=== PATIENT | male | born 1955 | race Caucasian/White ===

== ENCOUNTER 2020-03-29 19:04 | Inpatient (IN) | payer OTHER ==
[~2020-03-29] VITALS: Ht 177.8 cm; Wt 78.0 kg
[2020-03-29 19:13] VITALS: Ht 177.8 cm; Wt 78.0 kg
[2020-03-29 20:17] LABS: BASOPHIL % 0.1 % (0-2); PLATELET COUNT 244 x10^3mcL (130-400); RED CELL DISTRIBUTION WIDTH 12.7 % (11.5-14.5)
[2020-03-29 20:18] LABS: CALCIUM 8.7 mg/dL (8.5-10.1); CARBON DIOXIDE 24.2 mmol/L (21-32); CHLORIDE SERUM 98 mmol/L (98-107); CREATININE SERUM 1.1 mg/dL (0.7-1.3); GFR1 > 60 mL/min; GLUCOSE SERUM 133 mg/dL (74-106); POTASSIUM SERUM 4.3 mmol/L (3.5-5.1); SODIUM SERUM 132 mmol/L (136-145)
[2020-03-29 20:24] LABS: ALBUMIN 2.9 g/dL (3.4-5.0); ALKALINE PHOSPHATASE 79 U/L (46-116); ALT/SGPT 71 U/L (16-63); AST/SGOT 39 U/L (15-37); BILIRUBIN TOTAL 0.76 mg/dL (0.20-1.00); MAGNESIUM 2.2 mg/dL (1.8-2.4); TOTAL PROTEIN, SERUM 7.5 g/dL (6.4-8.2)
--- NOTE | 2020-03-29 21:19 | NUR ---
PT PRESENTS TO ED WITH C/O SOB AND LEFT CALF TENDERNESS. NO SWELLING OR REDNESS NOTED TO LEFT LOWER LEG. PT NOTED WITH SOME FACIAL GRIMACING WHEN PALPATED LEFT CALF. PT REPORTS PAIN X "8 DAYS" AND SOB FOR APPROX "A FEW DAYS". PT NOTED WITH SOME CONGESTION TO LEFT LUNG FEILD BUT DENIES ANY COUGH OR FEVER. PT LAYING IN GURNEY AT THIS TIME. SAFETY MEASURES IN PLACE. FULL CM AND O2 MONITOR IN PLACE. ULTRASOUND AT BEDSIDE. WILL CONTINUE TO MONITOR.
[2020-03-29] MEDS ORDERED: MORGIDOX 1X100100 MG PO (22:37)
[2020-03-29] MEDS ORDERED: PREDNISONE10 MG PO (22:39)
--- NOTE | 2020-03-29 23:27 | NUR ---
PT AWAKE IN GURNEY, NO ACUTE DISTRESS NOTED. PT SPEAKING WITH DAUGHTER AT THIS TIME ON PERSONAL CELL PHONE. BREATHING EVEN AND UNLABORED. PT A/O X4 AND VERBALLY RESPONSIVE, SPEAKING CLEAR FULL SENTENCES. BED IN LOWEST POSITION. FULL CM AND O2 MONITOR IN PLACE. SAFETY MEASURES IN PLACE. WILL CONTINUE TO MONITOR.
--- NOTE | 2020-03-30 00:44 | NUR ---
PT NOTED RESTING IN GURNEY, NO ACUTE DISTRESS NOTED. BREATHING EVEN AND UNLABORED. PT EASILY ARROUSABLE. A/O X4 AND VERBALLY RESPONSIVE. PT SPEAKS CLEAR, FULL SENTENCES. FULL CM AND O2 MONITOR ON. SAFETY MEASURES IN PLACE. BED IN LOWEST POSITION. WILL CONTINUE TO MONITOR.
--- NOTE | 2020-03-30 00:59 | NUR ---
PT AMBULATED TO RESTROOM FROM [facility] AND BACK TO [facility] WITH NO ACTUE DISTRESS NOTED. PLACED BACK ON FULL CM AND O2 MONITOR. SAFETY MEASURES IN PLACE. WILL CONTINUE TO MONITOR.
--- NOTE | 2020-03-30 01:46 | NUR ---
PT RESTING WELL IN GURNEY WITH NO ACUTE DISTRESS NOTED. BREATING EVEN AND UNLABORED. PT EASILY ARROUSABLE, SPEAKS CLEAR FULL SENTENCES. PT A/O X4. FULL CM AND O2 MONITOR IN PLACE. SAFETY MEASURES IN PLACE, BED IN LOWEST POSITION. WILL CONTINUE TO MONITOR.
--- NOTE | 2020-03-30 02:16 | NUR ---
REPORT CALLED TO CHARGE NURSE PRIYANKA FOX RN.
--- NOTE | 2020-03-30 02:29 | NUR ---
PT RECIEVED FROM ER. ARRIVED VIA [facility], ACCOMPANIED BY NURSE. PT ADMITTED FOR PE AND DVT. PT A/O X4, CALM AND COOPERATIVE AT THIS TIME. TELE 26, SINUS ZELDA. DENIES CP, NV, DIZZINESS, AND PALPATATIONS. BREATHING E/U ON RA. DENIES SOB. ABD SOFT AND FLAT. DENIES PAIN TO PALPATION. PT AMBULATORY AT BASELINE. PALPABLE PULSES, NO EDEMA AT THIS TIME. BED AT LOWEST POSITION. CALL LIGHT WITHIN REACH. WILL CONTINUE TO MONITOR.
--- NOTE | 2020-03-30 02:38 | NUR ---
PT PLACED ON TRANSPORT CM. PT AWAKE, A/O X4 AND VERBALLY RESPONSIVE. NO ACUTE DISTRESS NOTED, BREATHING EVEN AND UNLABORED. PT AMBULATED TO TELE BED WITH STEADY GAIT. DOMINIQUE RN AT BEDSIDE TO ASSUME CARE. SAFETY MEASURES IN PLACE.
[2020-03-30 02:59] VITALS: BP 147/70
--- NOTE | 2020-03-30 06:36 | NUR ---
PT RESTING IN BED AT THIS TIME. DENIES PAIN OR DISCOMFORT. PT BREATHING E/U ON RA. NO S/S OF ACUTE DISTRESS NOTED AT THIS TIME. ALL NEEDS AND CONCERNS ADDRESSED THIS SHIFT. WILL ENDORSE TO DAY NURSE.
[2020-03-30 07:14] LABS: ALBUMIN 2.7 g/dL (3.4-5.0); ALKALINE PHOSPHATASE 72 U/L (46-116); ALT/SGPT 59 U/L (16-63); AST/SGOT 33 U/L (15-37); BILIRUBIN TOTAL 0.5 mg/dL (0.20-1.00); CALCIUM 8.5 mg/dL (8.5-10.1); CARBON DIOXIDE 26.2 mmol/L (21-32); CHLORIDE SERUM 102 mmol/L (98-107); CREATININE SERUM 0.8 mg/dL (0.7-1.3); GFR1 > 60 mL/min; GLUCOSE SERUM 132 mg/dL (74-106); MAGNESIUM 2.4 mg/dL (1.8-2.4); SODIUM SERUM 135 mmol/L (136-145)
[2020-03-30 07:56] VITALS: BP 135/75
[2020-03-30 08:09] LABS: BASOPHIL % 0.2 % (0-2); PLATELET COUNT 211 x10^3mcL (130-400); RED CELL DISTRIBUTION WIDTH 12.9 % (11.5-14.5)
--- NOTE | 2020-03-30 08:38 | NUR ---
AAO TIMES 4. TELE 26 SR. LUNGS CTA. NO SOB. O2 SAT ON RA 98%. BS'S ACTIVE TIMES 4. COOPERATIVE. PERIPHERAL PULSES PALPABLE. NO EDEMA. ON LOVENOX. NO C/O PAIN.
[2020-03-30 12:23] VITALS: BP 117/70
[2020-03-30] MEDS ORDERED: ELIQUIS5 MG PO ×2 (15:57→15:58)
[2020-03-30 16:18] VITALS: BP 117/70
[2020-03-30 16:39] VITALS: BP 115/71
--- NOTE | 2020-03-30 17:41 | NUR ---
AAO TIMES 4. TELE DC'D, HE IS GOING HOME. I GAVE HIM THE DISCHARGE INSTRUCTIONS WITH COMPUTER PRINTOUT OF HIS PRESCRIPTION MEDICATION ELIQUIS PO. I REMOVED HIS SALINE LOCK TO HIS RFA ANGIO INTACT. HE SIGNED AND VERBALIZED HIS INSTRUCTIONS WERE UNDERSTOOD. HE CALLED HIS DTR AND WE ARE WAITING ON HER TO ARRIVE TO TAKE HIM HOME. HE IS NOW EATING HIS DINNER.
--- NOTE | 2020-03-30 18:15 | NUR ---
PATIENT WAS TAKEN TO HIS DAUGHTER WAITING DOWNSTAIRS AT 1814 TO BE TAKEN HOME.
== END 2020-03-30 18:41 | disposition home or self-care (01) | DRG 134 ==
LOC: ED 19:04 → DU 22:47
PROVIDERS: Student in an Organized Health Care Education/Training Program; ADMIT Hospitalist; ATTEND Hospitalist
DX: I26.99 Other pulmonary embolism without acute cor pulmonale (principal); I82.492 Acute embolism and thrombosis of other specified deep vein of left lower extremity; Z20.828 Contact with and (suspected) exposure to other viral communicable diseases
CPT/HCPCS: 85378; G0378; J0456; J0696; J1650; J7030; J7060; Q9967